=== PATIENT | female | born 1965 | race Caucasian/White ===

== ENCOUNTER → 2017-04-02 | Outpatient (CLI) | payer BC ==
[~2017-04-02] MED LIST: BUPIVACAINE MPF 0.5% 30 ML VIAL. ONE; IOHEXOL 300 MG/ML 50 ML VIAL. ONE; LIDOCAINE 1% PF 30 ML VIAL. ONE; methylPREDNISolone ACETATE 40 MG/ML VIAL. ONE
== END | disposition home or self-care (01) ==
LOC: SURG 14:03
PROVIDERS: ATTEND Anesthesiology Pain Medicine
DX: M79.651 Pain in right thigh (principal); E07.9 Disorder of thyroid, unspecified; Z72.89 Other problems related to lifestyle
CPT/HCPCS: 27096; 82947; J1030; J2001; J3490; Q9967

== ENCOUNTER → 2017-05-04 | Outpatient (CLI) | payer BC ==
[~2017-05-04] MED LIST changes: +BUPIVACAINE MPF 0.25% 10 ML VIAL. ONE; -BUPIVACAINE MPF 0.5% 30 ML VIAL. ONE
== END | disposition home or self-care (01) ==
LOC: SURG 14:10
PROVIDERS: ATTEND Anesthesiology
DX: M46.1 Sacroiliitis, not elsewhere classified (principal); E11.9 Type 2 diabetes mellitus without complications; E07.9 Disorder of thyroid, unspecified; Z72.89 Other problems related to lifestyle; Z98.41 Cataract extraction status, right eye; Z98.42 Cataract extraction status, left eye; Z98.890 Other specified postprocedural states
CPT/HCPCS: 27096; J1030; J2001; J3490; Q9967

== ENCOUNTER → 2020-01-11 | Outpatient (CLI) | payer BC ==
--- NOTE | 2020-01-12 18:32 | RAD ---
DATE: 01/11/2020 2:50 PM EXAM: DIGITAL SCREEN BILAT W/CAD HISTORY: Screening COMPARISON: 10/26/2012 Bilateral full field craniocaudal and mediolateral oblique images were obtained using digital technique. This study was interpreted with the benefit of Computerized Aided Detection (CAD). FINDINGS: Breast Density: FATTY The Breast Parenchyma is primarily fatty replaced. Breast parenchyma level density A. No suspicious masses, microcalcifications or architectural distortion is present to suggest malignancy in either breast. The visualized axillae are unremarkable. IMPRESSION: No mammographic evidence of malignancy. BI-RADS CATEGORY: 1 NEGATIVE RECOMMENDED FOLLOW-UP: 12M 12 MONTH FOLLOW-UP Annual screening mammography is recommended, unless clinically indicated sooner based on symptoms or change in physical exam. PQRS compliance statement: Patient information was entered into a reminder system with a target due date for the next mammogram. Mammography is a sensitive method for finding small breast cancers, but it does not detect them all and is not a substitute for careful clinical examination. A negative mammogram does not negate a clinically suspicious finding and should not result in delay in biopsying a clinically suspicious abnormality. "Our facility is accredited by the [employer] Mammography Program."
== END | disposition home or self-care (01) ==
LOC: MAMMO 14:56
PROVIDERS: ATTEND Family Medicine
DX: Z12.31 Encounter for screening mammogram for malignant neoplasm of breast (principal)
CPT/HCPCS: 77067

== ENCOUNTER 2020-03-10 23:04 | Emergency (ER) | payer BC ==
[~2020-03-10] VITALS: Ht 157.5 cm; Wt 115.9 kg
[2020-03-10 23:05] VITALS: BP 149/61
--- NOTE | 2020-03-10 23:20 | PHYS DOC ---
Past History Past Medical History: Arthritis, Diabetes, Hypertension, Sciatica General Adult EDM: Chief Complaint: FINGER INJURY HPI: HPI: "..I was removing stitches and I accidentally ran the cross stitch needle through my finger... We could not pull it out at home.... Its is got a hook on the end it.. " Patient is a 55 year old female who presents with above hx of self injury cross stitching needle. Pt. punctured left index finger with the cross stitch needle. Needle goes almost completely through Lt index finger tip. Pt. attempted to remove at home, but unable to pull it out. Distal neurovascular is intact and left index finger. Patient does not remember her last tetanus. Patient denies any history of immunosuppression. No recent travel outside the [facility]. No specific ill contacts. Patient is right-hand dominant. Patient has history of hypertension, sciatica, chronic back pain, diabetes, arthritis. The patient normally follows with Dr. Bui Review of Systems: Review of Systems: Constitutional: Denies fever or chills Eyes: Denies change in visual acuity HENT: Denies nasal congestion or sore throat Respiratory: Denies cough or shortness of breath Cardiovascular: Denies chest pain or edema GI: Denies abdominal pain, nausea, vomiting, bloody stools or diarrhea : Denies dysuria Musculoskeletal: Complains of embedded cross stitch needle in Lt index finger Integument: Denies rash Neurologic: Denies headache, focal weakness or sensory changes Endocrine: Denies polyuria or polydipsia Lymphatic: Denies swollen glands Psychiatric: Denies depression or anxiety Heart Score: Risk Factors: Risk Factors: DM, Current or recent (<one month) smoker, HTN, HLP, family history of CAD, obesity. Risk Scores: Score 0 - 3: 2.5% MACE over next 6 weeks - Discharge Home Score 4 - 6: 20.3% MACE over next 6 weeks - Admit for Clinical Observation Score 7 - 10: 72.7% MACE over next 6 weeks - Early Invasive Strategies Family History: Family History: Noncontributory to presentation Current Medications: Current Meds: See nursing for home meds Allergies: Allergies: Insulin glarine Physical Exam: PE: Constitutional: Well developed, well nourished, no acute distress, non-toxic appearance. [] HENT: Normocephalic, atraumatic, bilateral external ears normal, oropharynx moist, no oral exudates, nose normal. [] Eyes: PERRLA, EOMI, conjunctiva normal, no discharge. [] Neck: Normal range of motion, no tenderness, supple, no stridor. [] Cardiovascular:Heart rate regular rhythm, no murmur [] Lungs & Thorax: Bilateral breath sounds clear to auscultation [] Abdomen: Bowel sounds normal, soft, no tenderness, no masses, no pulsatile masses. [] Skin: Warm, dry, no erythema, no rash. [] Back: No tenderness, no CVA tenderness. [] Extremities: No tenderness, no cyanosis, no clubbing, ROM intact, no edema. [] Neurologic: Alert and oriented X 3, normal motor function, normal sensory function, no focal deficits noted. [] Psychologic: Affect normal, judgement normal, mood normal. [] EKG: EKG: [] Radiology/Procedures: Radiology/Procedures: [][place] [address] IMAGING REPORT Signed PATIENT: YI OLMEDO ACCOUNT: [id number] : 1965 LOCATION: ER AGE: 55 SEX: F EXAM STATUS: DEP ER ORD. PHYSICIAN: COREY MARINELLI MD REASON: stabbed her self with cross stitching PROCEDURE: HAND LEFT 3V EXAM: HAND LEFT 3V 03/10/2020 11:21 PM CLINICAL INDICATION:Penetrating injury COMPARISON:None TECHNIQUE:3 views of the left hand. FINDINGS: There is a linear radiopaque foreign body projecting over the second finger distal phalanx. There is no acute fracture. Alignment is normal. Joint spaces are maintained. No focal soft tissue abnormality. IMPRESSION:Linear radiopaque foreign body projecting over the second distal phalanx. No acute fracture. Electronically signed by: Adina Carlson MD (03/11/2020 12:06 AM) [id number] DICTATED AND SIGNED BY: ADINA CARLSON MD DATE: 03/11/20 0006 CC: WINSTON BUI MD; COREY MARINELLI MD ~ Course & Med Decision Making: Course & Med Decision Making Pertinent Labs and Imaging studies reviewed. (See chart for details) Procedure Note: -Finger cleaned with Betadine.. Patient received a digital block of 2% lidocaine as well as localized injection at point of puncture. Cross stitch needle pushed through finger and hook tip cut off with dike cutter, then needle with drawl achieved without problem. Irrigated puncture wound. Antibiotic ointment applied. Patient monitor closely for signs of infection. Patient take Bactrim DS twice a day. Patient to follow-up with primary care. Patient return if any concerns. Pt. tetanus up dated. Impression: 1. Imbedded Cross Stitch Needle Lt index Finger [] Dragon Disclaimer: Dragon Disclaimer: This electronic medical record was generated, in whole or in part, using a voice recognition dictation system. Departure Departure: Disposition: 01 DC HOME SELF CARE/HOMELESS Condition: STABLE Referrals: WINSTON BUI MD (PCP) Scripts Sulfamethoxazole/Trimethoprim (BACTRIM DS TABLET) 1 Each Tablet 1 TAB PO BID for pain for 7 Days, #14 TAB 0 Refills Prov: COREY MARINELLI MD 03/10/20 Christian Disclaimer This chart was dictated in whole or in part using Voice Recognition software in a busy, high-work load, and often noisy Emergency Department environment. It may contain unintended and wholly unrecognized errors or omissions. COREY MARINELLI MD Mar 10, 2020 23:20
[2020-03-10] MEDS ORDERED: TETANUS AND DIPHTHERIA TOX/PF 0.5 ML VIAL. VAX IM ONE (23:30)
[2020-03-10] MEDS: LIDOCAINE 2% 20 ML VIAL. IJ ONE (23:45)
[2020-03-10] MEDS: BACITRACIN ZINC TOPICAL OINT PACKET. TP ONE (23:48)
[2020-03-10] MEDS: SMZ/TMP 800/160MG TABLET. PO ONE (23:48)
[2020-03-10] MEDS: DIPH,PERTUSS(ACELL),TET VAC/PF 0.5 ML SYRINGE. VAX IM ONE (23:49)
[2020-03-10] MEDS ORDERED: SULF1TAB24 PO (23:58)
--- NOTE | 2020-03-11 00:09 | RAD ---
EXAM: HAND LEFT 3V 03/10/2020 11:21 PM CLINICAL INDICATION:Penetrating injury COMPARISON:None TECHNIQUE:3 views of the left hand. FINDINGS: There is a linear radiopaque foreign body projecting over the second finger distal phalanx. There is no acute fracture. Alignment is normal. Joint spaces are maintained. No focal soft tissue abnormality. IMPRESSION:Linear radiopaque foreign body projecting over the second distal phalanx. No acute fracture. Electronically signed by: Adina Carlson MD (03/11/2020 12:06 AM) [id number]
== END 2020-03-11 00:04 | disposition home or self-care (01) ==
LOC: ER 23:04
DX: S61.241A Puncture wound with foreign body of left index finger without damage to nail, initial encounter (principal); I10 Essential (primary) hypertension; E11.9 Type 2 diabetes mellitus without complications; X58.XXXA Exposure to other specified factors, initial encounter; Y93.89 Activity, other specified; Y92.89 Other specified places as the place of occurrence of the external cause; Y99.8 Other external cause status
CPT/HCPCS: 64450; 73130; 90471; 90715; 99284-25

== ENCOUNTER 2021-04-27 22:59 | Emergency (ER) | payer BC ==
[~2021-04-27] VITALS: Ht 157.5 cm; Wt 156.1 kg
[~2021-04-27 22:59] MED LIST changes: -BUPIVACAINE MPF 0.25% 10 ML VIAL. ONE; -IOHEXOL 300 MG/ML 50 ML VIAL. ONE; -LIDOCAINE 1% PF 30 ML VIAL. ONE; +SULF1TAB24 PO; -methylPREDNISolone ACETATE 40 MG/ML VIAL. ONE
[2021-04-27] MEDS ORDERED: guaiFENesin/CODEINE 100mg/10mg 5 ML LIQUID PO ONE (23:15)
[2021-04-27] MEDS ORDERED: ACETAMINOPHEN 500 MG TABLET PO ONE (23:15)
[2021-04-27] MEDS ORDERED: IBUPROFEN 600 MG TABLET. PO ONE (23:15)
--- NOTE | 2021-04-27 23:23 | PHYS DOC ---
Past History Past Medical History: Arthritis, Diabetes, Hypertension, Sciatica Past Surgical History: No Surgical History Alcohol Use: None Adult General HPI HPI Patient is a 56-year-old female who presents with a chief complaint of chills and body aches which started early this morning. States she took some naproxen earlier in the day which did seem to help but has worn off. Denies any recent travels, traumas, illnesses, fevers, chest pain, shortness of breath, abdominal pain, nausea, vomiting, dysuria, hematuria, blood in the stool or diarrhea. Denies any known ill contacts. States has been eating and drinking normally. States he is making urine and stool normally for her. Review of Systems Review of Systems Review of systems otherwise unremarkable except noted in HPI Allergies Allergies Allergies Coded Allergies Type Severity Reaction Last Updated Verified insulin glargine Allergy Intermediate 03/10/20 Yes Physical Exam Physical Exam Constitutional: Well developed, well nourished, no acute distress, non-toxic appearance. [] HENT: Normocephalic, atraumatic, bilateral external ears normal, oropharynx moist, no oral exudates, nose normal. [] Eyes: conjunctiva normal, no discharge. [] Neck: Normal range of motion, no tenderness, supple, no stridor, no lymphadenopathy. [] Cardiovascular:Heart rate regular rhythm, no murmur [] Lungs & Thorax: Mild congestion and scant global rhonchi with no wheezing, no tachypnea no increased work of breathing Abdomen: soft, no tenderness, no masses, no pulsatile masses. [] Skin: Warm, dry, no erythema, no rash. [] Extremities: No tenderness, ROM intact, no edema. [] Neurologic: Alert and oriented X 3, no focal deficits noted. [] Psychologic: Affect normal, judgement normal, mood normal. [] EKG EKG [] Radiology/Procedures Radiology/Procedures [] Heart Score C/O Chest Pain: No Risk Factors: Risk Factors: DM, Current or recent (<one month) smoker, HTN, HLP, family history of CAD, obesity. Risk Scores: Risk Factors: DM, Current or recent (<one month) smoker, HTN, HLP, family hi story of CAD, obesity. Course & Med Decision Making Course & Med Decision Making Patient is a 56-year-old female who presents with body aches and chills Vital signs not concerning. Physical exam noted above. Chest x-ray not concerning. Given Tylenol, ibuprofen and cough medicine. Covid swab obtained per request and pending. Discussed Covid education and quarantine and given instructions. Advised to follow-up in the morning with her primary care physician update on ED visit. Advised on symptom control at home. Gave return precautions to the ED. Patient grateful, verbalized understanding and agreed with plan of discharge. [] Dragon Disclaimer Dragon Disclaimer This electronic medical record was generated, in whole or in part, using a voice recognition dictation system. Departure Departure: Impression: Primary Impression: Viral syndrome Additional Impression: Pneumonia Disposition: HOME / SELF CARE / HOMELESS Condition: GOOD Referrals: WINSTON KIDD MD (PCP) Patient Instructions: Viral Syndrome Additional Instructions: Thank you for coming into the emergency department tonight and allowing us to take care of you. Please read the attached information carefully to go back over some of the things we discussed. Please continue a Tylenol, ibuprofen and Benadryl regimen as we discussed. Please update your primary care physician in the morning on your ED visit and your pending Covid swab results. Please be sure to read the Covid education given and maintain quarantine until you get your results. Please come back with new or concerning symptoms as discussed. You have been tested for or diagnosed with COVID-19. It is an infection caused by a new type of coronavirus. COVID-19 will cause cold-like or mild flu symptoms in most. It can cause more severe symptoms like problems breathing in some. There is no treatment for COVID-19. The body will clear the infection over time. Self-care will help to ease discomfort. Steps to Take: Self-Care Rest as needed. Healthy habits may help you feel better. Steps include: Choose healthy foods including fruits and vegetables. Drink water throughout the day. Get plenty of sleep each night. If you smoke, try to quit. It may ease breathing. Avoid alcohol. Keep Others Healthy The virus can spread to others. Droplets are released every time you sneeze or cough. The droplets can get into the mouth, nose, or eyes of people near you and lead to infection. To lower the chances of spreading COVID-19 to others: Stay at home until your doctor has said it is safe to leave. If you tested positive this will mean staying isolated until both of the following are true: At least 7 days have passed since the start of illness. You are free of fever for at least 72 hours without the use of medicine. During this time: - Avoid public areas, events, or transportation. Do not return to work or school until your doctor has said it is safe to do so. - Call ahead if you need to go to a medical center. Let them know you may have COVID-19. It will help them guide you where to go. They may also ask you to wear a facemask when you come to the office. - If you call for emergency medical services, let them know you may have COVID- 19. While at home: - Try to avoid close contact with others. Stay about 6 feet away. - If possible, spend most of your time in a separate room from others. - Use a face mask if you will be in close contact with others such as sharing a room or vehicle. - Have someone wipe down common surfaces in the home. Use household digital advertising analyst every day on areas like doorknobs, counters, or sinks. - Cough or sneeze into a tissue. Throw the tissue away right after use. If a tissue is not available, cough or sneeze into your elbow. - Wash your hands often. Wash them after sneezing or coughing. Use soap and water and wash for at least 20 seconds. Alcohol based hand kiln cleaner can be used if soap and water is not available. - Do not prepare food for others. Avoid sharing personal items like forks, spoons, or toothbrushes. - Avoid close contact with pets while you are sick. There is no evidence of the virus passing to pets. This is a safety step until more is known about this virus. Isolation can be frustrating. Social interaction can help. Keep in touch with friends and family through phone and tech options. You can still interact with others in your home, just keep a safe distance of about 6 feet. Follow-up: Your doctors office will check in with you to see if there are any changes in your health. You may be asked to keep track of symptoms to share with them. They will also let you know when you are clear to be in public again. Problems to Look Out For: Contact your doctor if your recovery is not going as you expect. Get emergency care if you have problems such as: - Trouble breathing - Nonstop chest pain or pressure - Changes in awareness, confusion, or problems waking - Lips or face have bluish color - Worsening of symptoms If you think you have an emergency, call for emergency medical services right away. [facility] Scripts Amoxicillin/Potassium Clav (AUGMENTIN 875-125 TABLET) 1 Each Tablet 1 TAB PO BID for PNA for 10 Days, #19 TAB 0 Refills Prov: PIPER MCCOY MD 04/28/21 Problem Qualifiers PIPER MCCOY MD Apr 27, 2021 23:22
[2021-04-28] MEDS ORDERED: AMOX1TAB61 PO (00:16)
[2021-04-28 00:21] LABS: INFLUENZA A PATIENT NEGATIVE (NEGATIVE); INFLUENZA B PATIENT NEGATIVE (NEGATIVE)
[2021-04-28] MEDS ORDERED: AMOXICILLIN/K CLAV 875/125MG TABLET. PO ONE (00:30)
[2021-04-28 00:32] VITALS: BP 127/67
--- NOTE | 2021-04-28 03:36 | RAD ---
EXAM: XR CHEST 1V 04/27/2021 11:50 PM CLINICAL INDICATION: Cough COMPARISON: None TECHNIQUE: AP view of the chest FINDINGS: The heart is normal in size. Lungs are adequately expanded. There is no consolidation, ple ural effusion, or pneumothorax. No acute osseous abnormality. IMPRESSION: No acute cardiopulmonary abnormality. Electronically signed by: Adina Carlson MD (04/28/2021 3:34 AM) [facility]
== END 2021-04-28 00:40 | disposition home or self-care (01) ==
LOC: ER 22:59
DX: J18.9 Pneumonia, unspecified organism (principal); B34.9 Viral infection, unspecified; M19.90 Unspecified osteoarthritis, unspecified site; E11.9 Type 2 diabetes mellitus without complications; I10 Essential (primary) hypertension; Z20.822 Contact with and (suspected) exposure to COVID-19; Z88.8 Allergy status to other drugs, medicaments and biological substances
CPT/HCPCS: 71045; 87426; 87804; 99284; C9803; U0003